=== PATIENT | male | born 1960 | race Caucasian/White ===

== ENCOUNTER → 2022-04-28 | Outpatient (CLI) | payer SELFPAY | END | disposition home or self-care (01) | PROVIDERS: Visit Provider Nurse Practitioner Adult Health | DX: Z12.11 Encounter for screening for malignant neoplasm of colon (principal) | CPT/HCPCS: 82274 ==

== ENCOUNTER 2023-10-03 23:56 | Emergency (ER) | payer OTHER, SELFPAY ==
[2023-10-03 23:56] VITALS: BP 145/85; PULSE 103; RESP 14; O2SAT 98
[2023-10-03 23:57] VITALS: BP 151/88; PULSE 109; RESP 12; TEMP 36.7; O2SAT 97; BMI 26.4
[2023-10-04] VITALS: BP 151/88; PULSE 109; RESP 12; TEMP 36.7; O2SAT 98
--- NOTE | 2023-10-04 00:04 | CT_ITS ---
STUDY: CT ABDOMEN AND PELVIS WITHOUT CONTRAST REASON FOR EXAM: Male, 62 years old. Kidney Stone RADIATION DOSAGE (If Supplied By Facility): CTDIvol = ( 8.00 ) mGy, DLP = ( 445.89 ) mGycm TECHNIQUE: Transaxial images were obtained from the dome of the diaphragm to the symphysis pubis without oral contrast, and without intravenous contrast. Sagittal and coronal images were reconstructed. Individualized dose optimization techniques were used for this CT. COMPARISON: None. FINDINGS: Left lower lobe groundglass consolidation compatible with pneumonia. Right lower lobe, right middle lobe and lingular atelectasis. The visualized portions of the heart are within normal limits. Normal liver. Normal gallbladder and extrahepatic biliary system. Normal spleen. Normal pancreas. Normal bilateral adrenal glands. Normal right kidney. Low attenuation structures in the peripelvic region of the lower pole seen most compatible with peripelvic cysts, largest measuring 2 cm. Otherwise normal left kidney. Normal visualized stomach. Normal small intestine. There are several colonic diverticula consistent with mild diverticulosis. The appendix is visualized and appears normal. There is mild atherosclerotic calcification of the abdominal aorta, without a demonstrated aneurysm. Normal inferior vena cava. Normal retroperitoneum. Normal urinary bladder. Normal abdominal wall. Mild spondylosis/degenerative disease with no acute fracture or subluxation. CT/Abdomen/Pelvis without Cont IMPRESSION: Left lower lobe pneumonia. No acute appendicitis. Mild diverticulosis with no signs of diverticulitis. No bowel obstruction. Left-sided peripelvic simple renal cysts, largest measuring 2 cm with no further follow-up imaging recommended. Remainder of abdominal viscera are unremarkable. Electronically Signed: Loretta Landry MD at 2:05 EST ,
--- NOTE | 2023-10-04 00:06 | EDS_ITS ---
HPI History of Present Illness Chief Complaint: Flank Pain Informant: patient, spouse/S.O. and family Narrative Narrative: Presents to the ED for evaluation. Dysuria and frequency since yesterday. He felt like he had the flu. No fevers or chills. No nausea or vomiting. He was called in for Macrobid and Pyridium took 6 hours ago. However having sharp pain in his left flank would come and go. No radiating symptoms. Denies any past medical history. Denies history of kidney injury or gastric ulcers. Prior similar symptoms: No PFSH PFSH Medical History no medical history Home Medications cefuroxime axetil 500 mg tablet 500 mg PO BID #14 tabs 10/04/23 [Rx Last Taken Unknown] omeprazole magnesium 20 mg tablet,delayed release (Prilosec OTC) 20 mg PO QODAY 10/04/23 [History Last Taken Unknown] Allergy/AdvReac Type Severity Reaction Status Date / Time ragweed pollen Allergy Intermediate Itching Verified 10/04/23 00:01 Social History Smoking Status: Never smoker ROS ROS ED Constitutional Constitutional ED: Denies chills, fever(s) or sweats Eyes Eyes: Denies change in vision ENT ENT ED: Denies dysphagia or sore throat Cardiovascular Cardiovascular: Denies chest pain, leg edema, palpitations or racing heartbeat Respiratory/Chest Respiratory/Chest: Denies cough, dyspnea or dyspnea on exertion Gastrointestinal Gastrointestinal: Denies abdominal pain, diarrhea, nausea or vomiting Genitourinary Genitourinary ED: Reports dysuria and urinary frequency; Denies hematuria Musculoskeletal Musculoskeletal: Reports back pain; Denies extremity pain or neck pain Integumentary Denies rash or wounds Neurologic Neurologic: Denies headache(s), paresthesias or weakness EXAM Physical Exam Const Vital Signs: 10/03/23 23:57 10/03/23 23:56 10/04/23 00:00 Temperature 98.1 F 98.1 F Temperature Source Temporal Temporal Pulse Rate 109 H 103 H 109 H Respiratory Rate 12 14 12 Blood Pressure 151/88 H 145/85 H 151/88 H Blood Pressure Mean 109 105 109 Pulse Ox 97 98 98 Oxygen Delivery Method Room Air Room Air Room Air 10/04/23 02:46 10/04/23 02:46 Temperature Temperature Source Pulse Rate 89 84 Respiratory Rate 18 16 Blood Pressure 138/71 H 138/79 H Blood Pressure Mean 93 98 Pulse Ox 99 99 Oxygen Delivery Method Positive well nourished and well developed General Appearance ED: well developed and NAD HEENT Reports moist mucous membranes normocephalic and atraumatic Eyes PERRL, EOMs intact bilaterally and conjunctivae normal General Eye ED: Yes normal appearance of both eyes Neck no lymphadenopathy and supple General: Negative for tenderness Chest Wall Chest: Negative for tenderness Resp normal respiratory effort and normal air movement Effort and Inspection: symmetric chest movement; Negative for respiratory distress Cardio regular rate, regular rhythm and no murmurs Peripheral Pulses: pulses 2+ throughout GI normal to inspection, nondistended, normoactive bowel sounds and non-tender Palpation: Negative for guarding or rebound tenderness present Back/Spine no CVA tenderness and no thoracic nor lumbar tenderness Back/Spine Narrative: No rash in the flank region Extremity normal to inspection General Extremety ED: Negative for edema or tenderness General Extremity: Negative for edema Neuro oriented x3 and no sensory deficits noted Sensorium / Orientation: awake and alert Skin no rashes or lesions noted and no wounds MDM MDM MDM Narrative Medical decision making narrative: Interventions / MDM: Differential diagnosis: Complicated UTI Diagnosis considered but do not suspect: Kidney stone however CT negative. My EKG interpretation: N/A Imaging independently reviewed and interpreted by myself: CT scan abdomen pelvis: No obstructive uropathy. Reported from radiology concerns for left lower lobe pneumonia findings. External documents reviewed: N/A Test considered but not ordered:N/A ED course: Patient presenting with urine symptoms with left flank pain. Afebrile. Renal stone protocol initiated. IV fluids and Toradol given for symptom control. Urine and urine culture ordered. CT scan ordered. 0110: Urine with signs of infection White count normal, normal renal function. Urine culture sent. He is covered Rocephin IV. CT scan interpreted by myself no obstructive uropathy. Patient clinically feeling better on reexamination. Awaiting final read at this time. 0215: Final read from radiology no kidney stones. Left parapelvic cyst noted. They had reported left low no pneumonia I discussed again with the patient has no cough symptoms therefore clinically no pneumonia. Also discussed his antibiotics for complete UTI does have coverage for this if this develops clinically. I discussed findings with the patient and spouse. They will hold the Macrobid they can use the Pyridium for dysuria. We will take and finish the antibiotic. Outpatient follow-up with her PCP. All questions were answered. Re-evaluation: stable Disposition discussed with patient/family/significant other: Patient and family Case discussed with consulting clinician: N/A This note was generated with [email or web address] dictation software. It may contain incorrect words, spelling, and punctuation that were not noted in checking the note before signing. Lab Data Attestation: I reviewed the patient's lab results. Labs: Laboratory Results - last 24 hr 10/04/23 10/04/23 00:21 00:26 WBC 10.7 RBC 4.90 Hgb 14.1 Hct 42.8 MCV 87.3 MCH 28.8 MCHC 32.9 RDW Std Deviation 41.0 RDW Coeff of Julianne 12.8 Plt Count 210 MPV 9.1 Immature Gran % (Auto) 0.300 Neut % (Auto) 79.7 H Lymph % (Auto) 10.0 L [place] % (Auto) 9.5 Eos % (Auto) 0.2 Baso % (Auto) 0.3 Absolute Neuts (auto) 8.5 H Absolute Lymphs (auto) 1.07 Nucleated RBC % 0 Sodium 135 L Potassium 4.0 Chloride 104 Carbon Dioxide 25.0 Anion Gap 6 BUN 13 Creatinine 0.97 Estim Creat Clear Calc 83.62 Est GFR (MDRD) Af Amer 101 Est GFR (MDRD) Non-Af 84 BUN/Creatinine Ratio 13.4 Glucose 115 H Calcium 9.3 Urine Color Bev Urine Clarity Clear Urine pH 6.0 Ur Specific Shannon 1.010 Urine Protein Negative Urine Glucose (UA) Normal Urine Ketones 50 H Urine Occult Blood 10 H Urine Nitrite Positive H Urine Bilirubin 1 H Urine Urobilinogen 4 H Ur Leukocyte Esterase Negative Urine RBC 0-5 SEEN Urine WBC 0 SEEN Ur Squamous Epith Cells 0 SEEN Urine Bacteria 0 SEEN Urine Mucus 0 SEEN Radiography Diagnostic Testing: Clinical Impression(s) from Imaging Studies Abdomen/Pelvis CT 10/04/23 00:04 IMPRESSION: Left lower lobe pneumonia. No acute appendicitis. Mild diverticulosis with no signs of diverticulitis. No bowel obstruction. Left-sided peripelvic simple renal cysts, largest measuring 2 cm with no further follow-up imaging recommended. Remainder of abdominal viscera are unremarkable. Electronically Signed: Loretta Landry MD at 2:05 EST , Discharge Plan Triage Chief Complaint: Flank Pain ED Provider: Talha Mckeon Dx/Rx/DC Orders Clinical Impression: Acute left flank pain, Complicated urinary tract infection, Dysuria Instructions: Urinary Tract Infections in Men, ED Pyelonephritis, Male (Adult) Prescriptions: New cefuroxime axetil 500 mg tablet 500 mg PO BID Qty: 14 0RF No Action omeprazole magnesium [Prilosec OTC] 20 mg tablet,delayed release (DR/EC) 20 mg PO QODAY Primary Care Provider: Mai Walters Referrals: Mai Walters [Primary Care Provider] - 1 Week Activity Restrictions/Additional Instructions: Work-up confirms urinary infection. There is no kidney stones. Take new antibiotic as prescribed. Do not take your Macrobid. Can continue Pyridium to help with burning sensation. Tylenol or ibuprofen as needed for pain control. Follow-up with your doctor. Return to ED for reevaluation any worsening symptoms. Disposition Disposition: Home, Self Care Discharge Date/Time: 10/04/23 02:49
[2023-10-04] MEDS: Ketorolac 15 MG/ML Vial IV (00:24)
[2023-10-04 00:27] LABS: Absolute Lymphocyte Count 1.07 X10^3/uL (0.83-4.51); Absolute Neutrophil Count 8.5 X10^3/uL (2.0-7.7); Basophil# 0.03 X10^3/uL; Basophil% 0.3 % (0-1); Eosinophil# 0.02 X10^3/uL; Eosinophils% 0.2 % (0-5); Hematocrit 42.8 % (40-54); Hemoglobin 14.1 g/dL (13.0-16.5); Lymphocyte # 1.07 X10^3/ul (0.83-4.51); Mean Corp Hgb Conc 32.9 g/dL (32-36); Mean Corpuscular Hgb 28.8 pg (27.0-32.0); Mean Corpuscular Volume 87.3 fL (80-94); Mean Platelet Vol. 9.1 fl (6.2-12.0); Monocyte# 1.02 X10^3/uL; Monocyte% 9.5 % (0-10); NRBC Flagged by Analyzer 0 % (0-5); Neutrophil # 8.53 X10^3/uL (2.7-7.7); Neutrophil % 79.7 % (47-70); Platelet Count 210 K/mm3 (150-450); RBC Distribution Width CV 12.8 % (11.6-14.6); White Blood Count 10.7 K/mm3 (4.4-11.0)
[2023-10-04 00:34] LABS: Bacteria 0 SEEN /hpf (None Seen); Mucous, Urine 0 SEEN /hpf (<or=2+); Squamous Epithelial Cells - UA 0 SEEN /hpf (0-5); White Blood Cells 0 SEEN /hpf (0-5)
[2023-10-04 00:36] LABS: Color, Urine Amber (Yellow); Glucose, Dipstick Normal (Normal); Ketone-Dipstick 50 mg/dl (Negative); Leukocyte Esterase-Dipstick Negative /ul (Negative); Nitrite-Dipstick Positive (Negative); Occult Blood-Urine 10 /ul (Negative); Protein-Dipstick Negative (Negative); Urine Clarity Clear (Clear); Urine Urobilinogen 4 mg/dl (Normal)
[2023-10-04] MEDS: 0.9% Normal Saline (1000mL) 1,000 ML 250 ML IV (00:40)
[2023-10-04 00:42] LABS: Urine Bilirubin Dipstick 1 mg/dL (Negative)
[2023-10-04 00:46] LABS: Anion Gap 6 (5-15); BUN 13 mg/dL (7-18); BUN/Creat Ratio 13.4 RATIO (10-20); Calcium,Total 9.3 mg/dL (8.5-10.1); Chloride 104 mmol/L (98-107); Creatinine, Serum 0.97 mg/dL (0.70-1.30); EST Glomerular Filtration Rate 84 mL/min (>60); Est Glom Filt Rate - Afr Amer 101 mL/min (>60); Estimated Creatinine Clearance 83.62 ml/min; Glucose 115 mg/dL (74-106); Sodium Level 135 mmol/L (136-145)
[2023-10-04 00:51] LABS: Red Blood Cells-Urine 0-5 SEEN /hpf (0-5)
[2023-10-04] MEDS: Ceftriaxone 1 GM/50 ML BAG IV (01:37)
[2023-10-04 02:46] VITALS: BP 138/71; BP 138/79; PULSE 84; PULSE 89; RESP 16; RESP 18; O2SAT 99
== END 2023-10-04 02:49 | disposition home or self-care (01) ==
PROVIDERS: Emergency Provider Emergency Medicine; Visit Provider Emergency Medicine
DX: R10.9 Unspecified abdominal pain (principal); N39.0 Urinary tract infection, site not specified; R30.0 Dysuria
CPT/HCPCS: 74176; 80048; 81001; 85025; 87086; 96365; 96375; 99283; J7030; A4216